=== PATIENT | female | born 1980 | race Caucasian/White ===

== ENCOUNTER 2017-02-20 20:20 | Emergency (ER) | payer SELFPAY ==
[2017-02-20 20:40] VITALS: BP 125/75
[2017-02-20] MEDS ORDERED: SULFAMETHOXAZOLE/TRIMETHOPRIM 1 EACH TABLET PO ONE ×2 (20:44)
--- NOTE | 2017-02-20 20:44 | ED Physician Documentation ---
Abscess - HISTORIAN Historian: patient - HPI Chief Complaint: Skin Rash Additional Information: Pt is a 36 yo female that presents with right breast redness, swelling and pain since Saturday. Pt reports she was getting in the shower Saturday night and noticed a painful red area under her right breast. States after the shower her was able to express a little purulent drainage but has not had any since then. States she noticed the redness and swelling has increased since then. Denies history of MRSA. Denies fever/chills. Timing: worse Location: other (under right breast) Quality: painful - ROS CONST: none CVS/RESP: none EYES/ENT: none GI/: none MS/SKIN/LYMPH: rash, other (Redness and swelling under right breast) NEURO/PSYCH: none - PAST HX Past History: none Allergies/Adverse Reactions: Allergies Allergy/AdvReac Type Severity Reaction Status Date / Time No Known Allergies Allergy Verified 03/08/15 22:19 Home Medications: Ambulatory Orders Medication Instructions Recorded NK [NK] 10/26/14 - SOCIAL HX Smoking History: non-smoker - FAMILY HX Family History: none - VITAL SIGNS Vital Signs: Vital Signs Temp Pulse Resp BP Pulse Ox 118/82 03/08/15 22:52 - REVIEWED ASSESSMENTS Nursing Assessment Reviewed: Yes Vitals Reviewed: Yes Abscess Physical Exam - EXAM General Appearance: no acute distress Skin: tender indurated area, erythema, other (Right breast - under right breast is an area of redness and warmth with a centralized indurated area roughly the size of a golf ball. No fluctuance is appreciated. Area is TTP.). No: pointing fluctuant with erythema Symptoms: warmth, tenderness Extremities: nml ROM Respiratory: no resp distress, breath sounds normal CVS: reg. rate & rhythm, heart sounds nml Abdomen: non-tender Neuro/Psych: oriented x3 Discharge Clincal Impression: Cellulitis Qualifiers: Site of cellulitis: trunk Site of cellulitis of trunk: chest wall Qualified Code(s): L03.313 - Cellulitis of chest wall Referrals: Linda Rodgers MD [Primary Care Provider] - 2 Days Additional Instructions: Take medications as prescribed. May take Ibuprofen for pain and inflammation relief. May use warm compresses to the area as well. Call tomorrow for follow up with your PCP in 3-5 days. Return to the ED should your symptoms worsen or not improve. Home Medications: Ambulatory Orders NK [NK] 10/26/14 Condition: Good Disposition: 01 HOME, SELF-CARE Decision to Admit: NO Decision Time: 20:43
== END 2017-02-20 20:49 | disposition home or self-care (01) ==
LOC: ED 20:20
DX: L03.313 Cellulitis of chest wall (principal)
CPT/HCPCS: A9270 ×2; 99283

== ENCOUNTER 2018-12-21 11:25 | Emergency (ER) | payer SELFPAY ==
[2018-12-21 11:41] VITALS: BP 118/74
--- NOTE | 2018-12-21 11:43 | ED Physician Documentation ---
Lower Extremity Problem - HISTORIAN Historian: patient - HPI Stated Complaint: L foot pain Chief Complaint: Lower Extremity Problem (Left Foot Pain) Additional Information: Patient is a 38-year-old female who presents to the ER with c/o left foot pain (? plantar faciaiitis). 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 She does have a callous next to the heel of the foot (nontender) but has tenderness/swelling to the arch of the foot. Pain is mostly when she bears weight. 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) Where: work Severity: moderate Quality: pain, swelling, tenderness Exacerbated By: walking Relieved By: rest Associated Symptoms: denies: chest pain, shortness of breath Further Comments: no - ROS CONST: no problems MS/SKIN/LYMPH: denies: calf pain, leg pain, ankle swelling CVS/RESP: none GI/: none EYES/ENT: none - PAST HX Past History: none PE Risk Factors: none Surgeries/Procedures: appendectomy, , other (sinus, RTC) Allergies/Adverse Reactions: Allergies Allergy/AdvReac Type Severity Reaction Status Date / Time No Known Allergies Allergy Verified 12/21/18 11:41 Home Medications: Ambulatory Orders Medication Instructions Recorded NK 10/26/14 - SOCIAL HX Smoking History: less than 1 pack/day Alcohol Use: none Drug Use: none - FAMILY HX Family History: none - VITAL SIGNS Vital Signs: Vital Signs Temp Pulse Resp BP Pulse Ox 98.3 F 77 16 118/74 99 12/21/18 11:36 12/21/18 11:36 12/21/18 11:36 12/21/18 11:36 12/21/18 11:36 ED Results Lab/Radiology - Radiology Radiology Impressions: Left foot, three views. History: BUMP ON PLANTAR PORTION OF LEFT FOOT X 2 WEEKS. FELT A POP 3 DAYS AGO. NO PREVIOUS INJURY OR SX TO LEFT FOOT. PATIENT DENIES CHANCE OF AND WAS SHIELDED FOR EXAM. Findings: The osseous structures are intact without acute fracture. The joint space and alignment are normal. There is no soft tissue swelling. Impression: 1. No acute osseous abnormality. Electronically signed on Dec 21, 2018 11:59:28 AM CDT by: Moises Jain - Orders Orders: ED Orders Category Date Time Status Newton Wrap Affected Extremity 1T Care 12/21/18 12:03 Ordered FOOT 3 VIEWS OR MORE [RAD] Stat Exams 12/21/18 Taken Lower Extremity Problem - EXAM General Appearance: mild distress Hips: bilateral hip: non-tender, normal range of motion Legs: bilateral: non-tender Knees: bilateral: non-tender Ankle: bilateral: non-tender Foot: left foot: pain, soft tissue tenderness, swelling Neuro/Tendon: normal sensation, normal motor functions, normal tendon functions EENT: eye inspection normal, ENT inspection normal, pharynx normal, CRISTAL RESPIRATORY: no resp distress, breath sounds normal CVS: heart sounds normal, equal pulses JOINT: nml ROM, Nml gait/weight bearing VASCULAR: pulses full/equal NEURO/PSYCH: oriented X3, motor nml, sensation nml, mood/affect nml, cognition normal SKIN: warm/dry, normal color Discharge Clincal Impression: Plantar fasciitis of left foot, Foot pain, left Referrals: Linda Rodgers MD [Primary Care Provider] - 2 Days Additional Instructions: Wear newton wrap for support Call clinic and see about follow up with Dr. Hernandez Condition: Good Disposition: 01 HOME, SELF-CARE Decision to Admit: NO Decision Time: 12:12
--- NOTE | 2018-12-21 12:18 | Diagnostic Imaging Report ---
DALE LONG [facility] [address] [facility] [address] [id number] Report Submission Date: Dec 21, 2018 11:59:28 AM CDT Patient Study Name: SUSAN ZAVALA Date: Dec 21, 2018 11:39:01 AM CDT Modality Type: DX Gender: F Description: FOOT 3 VIEWS OR MORE : 82 Institution: [facility] Physician: DALE LONG Left foot, three views. History: BUMP ON PLANTAR PORTION OF LEFT FOOT X 2 WEEKS. FELT A POP 3 DAYS AGO. NO PREVIOUS INJURY OR SX TO LEFT FOOT. PATIENT DENIES CHANCE OF AND WAS SHIELDED FOR EXAM. Findings: The osseous structures are intact without acute fracture. The joint space and alignment are normal. There is no soft tissue swelling. Impression: 1. No acute osseous abnormality. Electronically signed on Dec 21, 2018 11:59:28 AM CDT by: Moises COLE
== END 2018-12-21 12:08 | disposition home or self-care (01) ==
LOC: ED 11:25
DX: M72.2 Plantar fascial fibromatosis (principal); M79.672 Pain in left foot
CPT/HCPCS: 29540; 73630; 99283